=== PATIENT | male | born 1960 | race Caucasian/White ===

== ENCOUNTER → 2017-11-24 09:22 | Outpatient (CLI) | payer OTHER, SELFPAY ==
--- NOTE | 2017-11-24 10:25 | VDLE_ITS ---
Reason For Study: LEG PAIN AND SWELLING RIGHT LEFT Acute deep vein thrombosis is noted in the CFV is compressible, spontaneous, phasic, right common femoral vein. competent, and demonstrates normal Acute deep vein thrombosis is noted in the augmentation. right femoral vein. Acute deep vein thrombosis is noted in the right popliteal vein. Acute deep vein thrombosis is noted in the right peroneal vein. Acute deep vein thrombosis is noted in the right posterior tibial vein. Acute deep vein thrombosis is noted in the right soleus vein. Acute deep vein thrombosis is noted in the Gastroc veins. GSV is partially compressible with bright intraluminal echoes consistant with chronic SVT. Procedure Exam performed in department. A preliminary report was called and/or faxed to Dr. Echeverria. Interpretation Summary Acute deep vein thrombosis is noted in the right common femoral vein. Acute deep vein thrombosis is noted in the right femoral vein. Acute deep vein thrombosis is noted in the right popliteal vein. Acute deep vein thrombosis is noted in the right tibio-peroneal trunk. Acute deep vein thrombosis is noted in the right peroneal vein. Acute deep vein thrombosis is noted in the right posterior tibial vein. Acute deep vein thrombosis is noted in the right soleus vein. Acute deep vein thrombosis is noted in the right gastrocnemius vein. Chronic superficial thrombophlebitis is noted in the right great saphenous vein. Ordering Physician: BERKLEY ECHEVERRIA Referring Physician: Berkley Echeverria Performed By: Kina Gomez RVT
== END ==
LOC: CVS 09:27
PROVIDERS: Family Provider Family Medicine; PCP Family Medicine; Visit Provider Family Medicine
DX: M79.661 Pain in right lower leg (principal)
CPT/HCPCS: 93971